=== PATIENT | female | born 1990 | race Caucasian/White ===

== ENCOUNTER 2017-12-17 15:26 | Emergency (ER) | payer OTHER ==
[2017-12-17 16:24] LABS: APPEARANCE, URINE CLEAR (CLEAR); BACTERIA, URINE AUTO NEGATIVE (NEGATIVE); BILIRUBIN, URINE AUTO NEGATIVE (NEGATIVE); BLOOD, URINE BLOOD 1+ (NEGATIVE); COLOR, URINE YELLOW (YELLOW); GLUCOSE, URINE (UA) AUTO NEGATIVE (NEGATIVE); KETONE, URINE AUTO NEGATIVE (NEGATIVE); LEUKOCYTE ESTERASE, URINE AUTO NEGATIVE (NEGATIVE); MUCUS, URINE SMALL (NEGATIVE); NITRITE, URINE AUTO NEGATIVE (NEGATIVE); PROTEIN, URINE AUTO NEGATIVE (NEGATIVE); RBC, URINE AUTO 1 /HPF (0-3); SPECIFIC GRAVITY URINE AUTO 1.014 (1.002-1.035); SQUAMOUS EPITHELIAL CELL UR AU 2 /HPF (0-6); UROBILINOGEN, URINE AUTO 0.2 mg/dL (0.0-2.0); WBC, URINE AUTO 2 /HPF (0-3)
[2017-12-17 16:31] LABS: BASO % 0.5 % (0.0-1.0); EOS # 0.1 10^3/uL (0.0-0.50); EOS % 0.8 % (0.0-3.0); HEMOGLOBIN 13.4 g/dl (12.0-15.5); IMMATURE GRANULOCYTE % 0.6 % (0-3.0); LYMPH # 1.8 10^3/uL (1.5-6.5); LYMPH % 20.8 % (24.0-44.0); MEAN CORPUSCULAR HEMOGLOBIN 28.4 pg (27.0-33.0); MEAN CORPUSCULAR HGB CONC 33.5 g/dl (32.0-36.5); MEAN CORPUSCULAR VOLUME 84.7 fl (80.0-96.0); MONO # 0.5 10^3/uL (0.0-0.8); MONO % 6.2 % (0.0-5.0); NEUTROPHILS # 6.2 10^3/uL (1.8-7.7); NEUTROPHILS % 71.1 % (36.0-66.0); PLATELET COUNT, AUTOMATED 273 10^3/uL (150-450); RED BLOOD COUNT 4.72 10^6/uL (4.00-5.40); RED CELL DISTRIBUTION WIDTH 12.6 % (11.5-14.5); WHITE BLOOD COUNT 8.7 10^3/uL (4.0-10.0)
[2017-12-17] MEDS: NS 1,000 ML IV (16:33)
[2017-12-17] MEDS: ONDANSETRON 4MG/2ML VIAL (J2405) IV (16:34)
[2017-12-17 16:59] LABS: INFLUENZA A AMPLIFICATION NEGATIVE (NEGATIVE); INFLUENZA B AMPLIFICATION NEGATIVE (NEGATIVE)
[2017-12-17 17:25] LABS: CONTROL LINE HCG INT CTR LINE PRESENT; HCG, SERUM QUALITATIVE NEGATIVE (NEGATIVE)
[2017-12-17 17:30] LABS: ALBUMIN 3.6 GM/DL (3.2-5.2); ALKALINE PHOSPHATASE 73 U/L (45-117); ALT/SGPT 39 U/L (12-78); ANION GAP 7 MEQ/L (8-16); AST/SGOT 21 U/L (7-37); BILIRUBIN,TOTAL 0.2 MG/DL (0.2-1.0); BLOOD UREA NITROGEN 14 MG/DL (7-18); CALCIUM LEVEL 8.5 MG/DL (8.5-10.1); CARBON DIOXIDE LEVEL 28 MEQ/L (21-32); CHLORIDE LEVEL 106 MEQ/L (98-107); CREATININE FOR GFR 0.86 MG/DL (0.55-1.30); GLOMERULAR FILTRATION RATE > 60.0 (>60); GLUCOSE, FASTING 170 MG/DL (70-100); LIPASE 137 U/L (73-393); POTASSIUM SERUM 3.6 MEQ/L (3.5-5.1); SODIUM LEVEL 141 MEQ/L (136-145); TOTAL PROTEIN 7.2 GM/DL (6.4-8.2)
== END 2017-12-17 18:06 | disposition home or self-care (01) ==
LOC: M ED 15:26
DX: R09.81 Nasal congestion (principal)
CPT/HCPCS: J2405

== ENCOUNTER → 2018-03-10 | Outpatient (REF) | payer OTHER ==
[~2018-03-10] MED LIST: 12 H120T2 PO; LEXA1TAB2 PO; ZOFR4TAB14 PO
== END ==
LOC: M SFHCLERA 10:20
PROVIDERS: ATTEND Nurse Practitioner Family
DX: R53.81 Other malaise (principal)

== ENCOUNTER 2018-05-04 09:14 | Day surgery (SDC) | payer OTHER ==
[~2018-05-04] VITALS: Ht 162.6 cm; Wt 120.7 kg
[~2018-05-04 09:14] MED LIST changes: +VITA50005 PO
[2018-05-04] MEDS ORDERED: NS 1,000 ML IV ONE (10:00)
[2018-05-04] MEDS ORDERED: PROPOFOL 200 MG/20 ML VIAL As Ordered ONE (10:54)
[2018-05-04] MEDS ORDERED: LIDOCAINE 2% INJ 100 MG/5 ML SDV (FOR ANES.) As Ordered ONE (10:54)
--- NOTE | 2018-05-04 10:56 | ROOR ---
Patient Name: Leanna Fuentes Procedure Date: 05/04/2018 10:40 AM Date of : 1990 Age: 28 Room: [facility] Gender: Female Note Status: Finalized Procedure: Upper Endoscopy + Biopsies Indications: Nausea with vomiting Providers: Gwyn Porter MD Referring MD: DANE VELA MD Requesting Provider: Medicines: Monitored Anesthesia Care Complications: No immediate complications. Procedure: Pre-Anesthesia Assessment: - The heart rate, respiratory rate, oxygen saturations, blood pressure, adequacy of pulmonary ventilation, and response to care were monitored throughout the procedure. The Endoscope was introduced through the mouth, and advanced to the second part of duodenum. The upper GI endoscopy was accomplished without difficulty. The patient tolerated the procedure well. Findings: The Z-line was regular and was found 40 cm from the incisors. No other significant abnormalities were identified in a careful examination of the stomach. The exam of the duodenum was otherwise normal. Biopsies were taken with a cold forceps in the gastric antrum for Helicobacter pylori testing. Multiple biopsies were obtained with cold forceps for evaluation to rule out Barrios's Esophagus at the gastroesophageal junction, as well as random biopsies. The exam was otherwise without abnormality. Impression: - Z-line regular, 40 cm from the incisors. - The examination was otherwise normal. - Biopsies were taken with a cold forceps for Helicobacter pylori testing. - Biopsy performed in the gastroesophageal junction. - The examination was otherwise normal. Recommendation: - Patient has a contact number available for emergencies. The signs and symptoms of potential delayed complications were discussed with the patient. Return to normal activities tomorrow. Written discharge instructions were provided to the patient. - High fiber diet. - Discharge patient to home. - Follow an antireflux regimen. - Continue present medications. - Await pathology results. - Telephone GI clinic for pathology results in 1 week. - Return to referring physician. - The findings and recommendations were discussed with the patient's family. Gwyn Porter MD Gwyn Porter MD 05/04/2018 10:56:09 AM This report has been signed electronically. Number of Addenda: 0 Note Initiated On: 05/04/2018 10:40 AM Estimated Blood Loss: Estimated blood loss: none.
--- NOTE | 2018-05-04 11:13 | ROOR ---
Patient Name: Leanna Fuentes Procedure Date: 05/04/2018 10:41 AM Date of : 1990 Age: 28 Room: [facility] Gender: Female Note Status: Finalized Procedure: Total Colonoscopy to Cecum + ileoscopy + Bx Indications: Lower abdominal pain, Clinically significant diarrhea of unexplained origin, Family history of Crohn's disease Providers: Gwyn Porter MD Referring MD: DANE VELA MD Requesting Provider: Medicines: Monitored Anesthesia Care Complications: No immediate complications. Procedure: Pre-Anesthesia Assessment: - The heart rate, respiratory rate, oxygen saturations, blood pressure, adequacy of pulmonary ventilation, and response to care were monitored throughout the procedure. The Colonoscope was introduced through the anus and advanced to the cecum, identified by appendiceal orifice and ileocecal valve. The colonoscopy was performed without difficulty. The patient tolerated the procedure well. The quality of the bowel preparation was excellent. Findings: The perianal and digital rectal examinations were normal. Non-bleeding internal hemorrhoids were found during retroflexion. The hemorrhoids were small and Grade I (internal hemorrhoids that do not prolapse). No other significant abnormalities were identified in a careful examination of the remainder of the colon. Biopsies for histology were taken with a cold forceps from the ascending colon, transverse colon and descending colon for evaluation of microscopic colitis. The terminal ileum appeared normal. The exam was otherwise without abnormality on direct and retroflexion views. Impression: - Non-bleeding internal hemorrhoids. - The examined portion of the ileum was normal. - The examination was otherwise normal on direct and retroflexion views. - Biopsies were taken with a cold forceps from the ascending colon, transverse colon and descending colon for evaluation of microscopic colitis. - The exam was otherwise normal to the cecum. Recommendation: - Patient has a contact number available for emergencies. The signs and symptoms of potential delayed complications were discussed with the patient. Return to normal activities tomorrow. Written discharge instructions were provided to the patient. - High fiber diet. - Discharge patient to home. - Continue present medications. - Await pathology results. - Telephone GI clinic for pathology results in 1 week. - Return to referring physician. - The findings and recommendations were discussed with the patient's family. Gwyn Porter MD Gwyn Porter MD 05/04/2018 11:12:57 AM This report has been signed electronically. Number of Addenda: 0 Note Initiated On: 05/04/2018 10:41 AM Estimated Blood Loss: Estimated blood loss: none.
[2018-05-04 11:48] VITALS: BP 133/88
== END 2018-05-04 12:00 | disposition home or self-care (01) ==
LOC: M OPP 09:14
PROVIDERS: ATTEND Internal Medicine Gastroenterology
DX: K64.0 First degree hemorrhoids (principal); R10.30 Lower abdominal pain, unspecified; Z83.79 Family history of other diseases of the digestive system; R19.7 Diarrhea, unspecified; R11.2 Nausea with vomiting, unspecified; K29.50 Unspecified chronic gastritis without bleeding; Z79.899 Other long term (current) drug therapy; Z88.5 Allergy status to narcotic agent

== ENCOUNTER → 2018-09-29 | Outpatient (REF) | payer OTHER ==
[2018-09-30 11:12] LABS: AMORPHOUS SEDIMENT SMALL (NEGATIVE); APPEARANCE, URINE TURBID (CLEAR); BACTERIA, URINE AUTO NEGATIVE (NEGATIVE); BILIRUBIN, URINE AUTO NEGATIVE (NEGATIVE); BLOOD, URINE BLOOD 1+ (NEGATIVE); COLOR, URINE YELLOW (YELLOW); GLUCOSE, URINE (UA) AUTO NEGATIVE (NEGATIVE); KETONE, URINE AUTO NEGATIVE (NEGATIVE); LEUKOCYTE ESTERASE, URINE AUTO NEGATIVE (NEGATIVE); NITRITE, URINE AUTO NEGATIVE (NEGATIVE); PROTEIN, URINE AUTO NEGATIVE (NEGATIVE); RBC, URINE AUTO 0 /HPF (0-3); SPECIFIC GRAVITY URINE AUTO 1.023 (1.002-1.035); SQUAMOUS EPITHELIAL CELL UR AU 0 /HPF (0-6); UROBILINOGEN, URINE AUTO 0.2 mg/dL (0.0-2.0); WBC, URINE AUTO 0 /HPF (0-3)
== END ==
LOC: M SFHCLERA 21:13
PROVIDERS: ATTEND Physician Assistant
DX: R31.9 Hematuria, unspecified (principal)
CPT/HCPCS: 81001; 81002; 81025; 82948; 87086; G0463

== ENCOUNTER → 2019-02-16 | Outpatient (CLI) | payer OTHER ==
--- NOTE | 2019-02-17 10:24 | ECGEPIP ---
[facility] Test Date: 2019-02-16 Pat Name: SUMAN MEDRANO Department: Room: - Gender: Female [employer]: [place] : 1990 Requested By: Parvin Duff Order Number: [id number] Reading MD: Lamont Lucero Measurements Intervals [place] Rate: 97 P: 30 MN: 165 QRS: -9 QRSD: 78 T: 0 QT: 339 QTc: 431 Interpretive Statements SINUS RHYTHM Comparison tracing not on file Electronically Signed on 02-17-2019 10:24:08 EST by Lamont Lucero
== END ==
LOC: M EKG 14:55
PROVIDERS: ATTEND Nurse Practitioner Women's Health
DX: O24.011 Pre-existing type 1 diabetes mellitus, in pregnancy, first trimester (principal); Z3A.10 10 weeks gestation of pregnancy

== ENCOUNTER → 2019-05-16 | Outpatient (REF) | payer OTHER | LOC: M SFHCLERA 17:53 | PROVIDERS: ATTEND Physician Assistant Medical | DX: K12.1 Other forms of stomatitis (principal) | CPT/HCPCS: 87070; G0463 ==

== ENCOUNTER 2019-08-17 13:41 | Inpatient (IN) | payer OTHER ==
[~2019-08-17] VITALS: Ht 162.6 cm; Wt 120.8 kg
[2019-08-17] VITALS (7 sets, daily range): BP systolic 115–132; BP diastolic 66–80
[~2019-08-17 13:41] MED LIST changes: -DOCU100C16 PO; -IBUP80TA PO; -INSULIN REGULAR SC; -PERCOCET PO; -REG INSULIN SC; -baby aspirin PO; -nph insulin SQ
[2019-08-17] MEDS ORDERED: nph insulin SQ (14:17)
[2019-08-17] MEDS ORDERED: baby aspirin PO (14:17)
[2019-08-17] MEDS ORDERED: INSULIN REGULAR SC (14:17)
[2019-08-17] MEDS ORDERED: REG INSULIN SC (14:17)
[2019-08-17] MEDS ORDERED: INSULIN REGULAR IN 0.9 % NACL 100 UNIT in IV 1 EA IV SCH ×2 (14:32)
[2019-08-17] MEDS ORDERED: NS 1,000 ML IV SCH (14:32)
[2019-08-17] MEDS ORDERED: INSULIN IV RATE CHANGE DOCUMENTATION ML/HR XX SCH (14:45)
[2019-08-17] MEDS ORDERED: miSOPROStol 25 MCG 1/4 TAB (S0191) PO ONE (15:00)
[2019-08-17 15:47] LABS: BASO % 0.3 % (0.0-1.0); EOS % 0.2 % (0.0-3.0); HEMATOCRIT 35.2 % (36.0-47.0); HEMOGLOBIN 11.8 g/dl (12.0-15.5); LYMPH # 1.3 10^3/uL (1.5-5.0); LYMPH % 15.1 % (24.0-44.0); MEAN CORPUSCULAR HGB CONC 33.5 g/dl (32.0-36.5); MEAN CORPUSCULAR VOLUME 80.5 fl (80.0-96.0); MONO # 0.5 10^3/uL (0.0-0.8); MONO % 5.4 % (0.0-5.0); NEUTROPHILS # 6.9 10^3/uL (1.5-8.5); NEUTROPHILS % 78.7 % (36.0-66.0); PLATELET COUNT, AUTOMATED 188 10^3/uL (150-450); RED BLOOD COUNT 4.37 10^6/uL (4.00-5.40); WHITE BLOOD COUNT 8.8 10^3/uL (4.0-10.0)
[2019-08-17] MEDS ORDERED: FLUCONAZOLE 50MG TABLET PO ONE (16:00)
[2019-08-17 17:02] LABS: ALBUMIN 2.5 GM/DL (3.2-5.2); ALT/SGPT 17 U/L (12-78); BILIRUBIN,TOTAL 0.4 MG/DL (0.2-1.0); BLOOD UREA NITROGEN 10 MG/DL (7-18); CALCIUM LEVEL 8.7 MG/DL (8.5-10.1); CARBON DIOXIDE LEVEL 25 MEQ/L (21-32); CHLORIDE LEVEL 107 MEQ/L (98-107); CREATININE FOR GFR 0.72 MG/DL (0.55-1.30); GLOMERULAR FILTRATION RATE > 60.0 (>60); GLUCOSE, FASTING 112 MG/DL (70-100); POTASSIUM SERUM 4.2 MEQ/L (3.5-5.1); SODIUM LEVEL 138 MEQ/L (136-145); TOTAL PROTEIN 5.7 GM/DL (6.4-8.2)
[2019-08-17 17:32] LABS: HEMOGLOBIN A1c 5.6 %
[2019-08-17] MEDS ORDERED: miSOPROStol 25 MCG 1/4 TAB (S0191) SL SCH (18:00)
[2019-08-17] MEDS ORDERED: miSOPROStol 25 MCG 1/4 TAB (S0191) SL ONE (20:30)
[2019-08-18] VITALS (11 sets, daily range): BP systolic 117–137; BP diastolic 67–86
[2019-08-18] MEDS ORDERED: MORPHINE 10 MG/ML 1ML VIAL (J2270) IM ONE (02:45)
[2019-08-18] MEDS ORDERED: PROMETHAZINE INJ 25 MG/ML VIAL (J2550) IV ONE (02:45)
[2019-08-18] MEDS ORDERED: MORPHINE 10 MG/ML 1ML VIAL (J2270) IV ONE (02:45)
[2019-08-18] MEDS ORDERED: LACTATED RINGER'S 1000 ML IV STA (06:28)
--- NOTE | 2019-08-18 06:28 | IPNPDOC ---
Text Note Date of Service The patient was seen on 08/18/19. NOTE patient is a 29 yo G1 @ 37wks admitted yesterday for IOL secondary to BPP 06/20. NST non reactive on admission, no accelerations. patient's course complicated by DM on insulin. Patients induction started with cytotec 25mcg x 3. She received morphine and phenergan around 0300 for pain management. through out her labor course, fht shows min-mod variability with episodic decels. On occasions when contraction is coupled with decel, they appear to be late or variable decels. These usually resolved with extrauterine resuscitations (oxygen, fluids, positioning). Last cervix checked at around 0300 to be 1 cm currently fht: 165/min-mod judy/occasional late decels. toco: ctx q 3mins discussed with patient that fth shows fetus may not able to tolerate active labor. Option of primary section vs. continuing with induction knowing that we may have to have a section for concerns in active labor. Discussed with patient risks of section to include pain post op and recovery, injury to surrounding organs, bleeding needing blood transfusion, possible hysterectomy, infection (patient's specific infection risk is higher due to obesity and DM), postoperative pain and effects of future delivery planing. After patient discussed with her spouse and family, patient desires to move forward with primary section. Patient consented for section and blood products. consent forms signed. plan for ancef and azithromycin for antibiotics back to OR once team ready. DO Rona VS,Lawrencebone, I+O VS, Fishbone, I+O Laboratory Tests 08/17/19 15:31 Vital Signs Date Time Temp Pulse Resp B/P (MAP) Pulse Ox O2 Delivery O2 Flow Rate FiO2 08/18/19 03:10 18 08/18/19 03:09 Room Air 08/18/19 01:07 98.4 86 123/68 (86) I&O- Last 24 Hours up to 6 AM 08/18/19 06:00 Output Total 500 ml Balance -500 ml SEAN JENNINGS DO Aug 18, 2019 05:56
[2019-08-18] MEDS ORDERED: AZITHROMYCIN INJ 500 MG, VIAL MATE ADAPTER 1 EACH in D5W 250 ML IV ONE (06:30)
[2019-08-18] MEDS ORDERED: BICITRA 30ML SOLN UDC PO ONE (06:30)
[2019-08-18] MEDS ORDERED: ceFAZolin SOD 3 GM in IV 1 EA IV ONE (06:30)
[2019-08-18] MEDS ORDERED: ceFAZolin SOD 1 GM in D5W MINI-BAG PLUS 50 ML IV ONE (06:45)
[2019-08-18] MEDS ORDERED: ceFAZolin SOD 2 GM in IV 1 EA IV ONE (06:45)
[2019-08-18] MEDS ORDERED: METOCLOPRAMIDE INJ 10MG/2ML VIAL (J2765 PER 1) IV PRN (07:57)
[2019-08-18] MEDS ORDERED: diphenhydrAMINE 50MG/ML VIAL (J1200) IV PRN (07:57)
[2019-08-18] MEDS ORDERED: NALOXONE INJ 0.4MG/1ML VIAL (J2310 PER 1MG) IV PRN ×2 (07:57)
[2019-08-18] MEDS ORDERED: NALBUPHINE HCL 10 MG/ML AMP (J2300) IV PRN (07:57)
[2019-08-18] MEDS ORDERED: ONDANSETRON 4MG/2ML VIAL IV PRN ×2 (07:57→09:45)
[2019-08-18] MEDS ORDERED: PHENYLephrine HCL 500 MCG/5 ML (100MCG/ML) SYRINGE (J2370) As Ordered ONE (08:11)
[2019-08-18] MEDS ORDERED: dexameTHASONE 4 MG/ML 1ML VIAL (J1100 PER 1MG) As Ordered ONE (08:11)
[2019-08-18] MEDS ORDERED: OXYTOCIN 30 UNITS IN 0.9% NaCl 500ML IV BAG (J2590) As Ordered ONE ×2 (08:11→09:15)
[2019-08-18] MEDS ORDERED: ONDANSETRON 4MG/2ML VIAL As Ordered ONE (08:11)
[2019-08-18] MEDS ORDERED: MORPHINE PRES-FREE INJ 10 MG/10 ML VIAL (J2274) As Ordered ONE (08:11)
[2019-08-18] MEDS ORDERED: KETOROLAC 60 MG/2 ML VIAL As Ordered ONE (08:11)
[2019-08-18] MEDS ORDERED: MIDAZOLAM INJ 2MG/2ML VIAL (J2250 PER 1MG) As Ordered ONE (08:40)
[2019-08-18 08:54] LABS: CORD GAS ABE V -7.1; CORD GAS HCO3 V 23.1 MEQ/L; CORD GAS O2 SAT V 23.4 %; CORD GAS PCO2 V 68.4 mmHg; CORD GAS PH V 7.146 UNITS; CORD GAS PO2 V 16.5 mmHg; CORD GAS SBC V 17.2 MEQ/L; CORD GAS TCO2 V 25.2 MEQ/L
[2019-08-18 08:57] LABS: CORD GAS ABE A -8.5; CORD GAS HCO3 A 22.3 MEQ/L; CORD GAS O2 SAT A 34.9 %; CORD GAS PCO2 A 72.6 mmHg; CORD GAS PH A 7.106 UNITS; CORD GAS PO2 A 23.8 mmHg; CORD GAS SBC A 16.4 MEQ/L; CORD GAS TCO2 A 24.6 MEQ/L
[2019-08-18] MEDS ORDERED: ESCITALOPRAM OXALATE 10 MG TAB (LEXAPRO) PO SCH (09:00)
[2019-08-18] MEDS ORDERED: MEASLES,MUMPS,RUBELLA VACCINE INJ (MMR-II) (90707) SC SCH (09:15)
[2019-08-18] MEDS ORDERED: RHOGAM 300 MCG (1500 IU) INJ (J2790) IM SCH ×2 (09:15→11:45)
[2019-08-18] MEDS ORDERED: PERCOCET 5MG/325MG TAB PO PRN (09:15)
[2019-08-18] MEDS ORDERED: ACETAMINOPHEN 650 MG SUPP PR PRN (09:15)
[2019-08-18] MEDS ORDERED: fentaNYL 100 MCG/2 ML INJECTION (J3010) IV PRN (09:45)
[2019-08-18] MEDS ORDERED: oxyCODONE 5MG TAB PO PRN (09:45)
--- NOTE | 2019-08-18 10:41 | POST-OPPD ---
Postoperative Procedure Note Date Of Procedure: Aug 18, 2019 PREOPERATIVE DIAGNOSIS: Gravid @ 37 wks gestation intolerant to labor DM on insulin obesity POSTOPERATIVE DIAGNOSIS: Post operative (primary low transverse section) DM obesity FINDINGS: viable male infant, 2980 gm, 1/3/6/8. PROCEDURE: Primary low transverse section SURGEON: Myra Rea DO IT PROGRAM AUDITOR: Leslie Sweeney MD ANESTHESIA: Spinal SPECIMENS: none ESTIMATED BLOOD LOSS: 600 REPLACED: 1000cc LR DRAINS: 100cc urine COMPLICATIONS: none POSTOPERATIVE CONDITION: stable Detail description of procedure: Description of procedure: The risks, benefits, indications and alternatives to the procedure were reviewed with the patient and informed consent was obtained. Spinal anesthesia was dosed for surgical analgesic. She was prepped and draped in the normal sterile fashion in the dorsal supine position with a leftward tilt. The abdomen was entered through a pfannenstiel incision. Sharp dissection taken down to fascia layer. Fascia layer entered sharply and carried lateral and upward bilaterally. Space between fascia and rectus muscle created bluntly. Midline rectus muscle entered bluntly. Peritoneum entered sharply between rectus muscles. The rectus muscles and peritoneum bluntly along midline and exposes the gravid uterus. The Mobius retractor placed intraabdominal. The vesicouterine peritoneum was identified. Beckham uterine incision made. The uterine incision was extended superolaterally. Head delivered through the hysterotomy. The anterior and posterior shoulders delivered followed by body with ease. The cord was clamped and cut. The infant was handed off to warmer. Pitocin bolus started. Cord gas collected. The placenta delivered spontaneously. The uterus was cleared of all clots and debris. The uterine incision was repaired with 2 layers with 0 chromic in a running locking fashion and 0 monocryl imbricating layer. Hysterotomy inspected to be hemostatic. Mobius retractor removed. The peritoneum, fascia and muscle bellies were inspected and noted to be hemostatic. The peritoneum brought back together midline with 3-0 vicryl. The fascia approximated with 0 vicryl suture in a running fashion. The subcutaneous tissue closed with 3-0 vicryl interrupted. The skin was closed with subcuticular 4-0 Monocryl. Dressing applied. The vagina was cleared of clots. Sponge laps, needle and instruments count correct x 2. Patient taken to recovery room in stable condition. DO MICHAELA Rea LUAT N. DO Aug 18, 2019 09:36
--- NOTE | 2019-08-18 10:41 | DNPDOC ---
[facility] Delivery Note Delivery Note DATE OF DELIVERY: 08/18/2019 PREDELIVERY DIAGNOSIS: 37+0/7 weeks' gestation intolerant to labor Class B DM on insulin Obesity POST DELIVERY DIAGNOSIS: Delivered. class B DM obesity PROCEDURE: primary low transverse section AMPOULE INSPECTOR: Dr. Sean Rea DO ANESTHESIA: SPINAL ESTIMATED BLOOD LOSS: 600 mL. FINDINGS: viable male infant, 2980 gm, 1/3/6/8 DELIVERY SUMMARY: Uncomplicated primary cesaeran delivery, baby went to NICU for respiratory concerns. see dictation note for details. SEAN REA DO Aug 18, 2019 09:32
[2019-08-18] MEDS ORDERED: LR 1,000 ML IV SCH (12:00)
[2019-08-18] MEDS: FLUCONAZOLE 50MG TABLET PO SCH ×2 (15:20→16:40)
[2019-08-18] MEDS: KETOROLAC 30 MG/ML 1ML VIAL IV SCH ×2 (15:20→20:58)
[2019-08-18] MEDS: DOCUSATE SODIUM 100 MG CAP PO SCH (20:58)
[2019-08-18] MEDS: ESCITALOPRAM OXALATE 10 MG TAB (LEXAPRO) PO SCH (21:40)
[2019-08-19 02:00] VITALS: BP 128/68
[2019-08-19] MEDS: KETOROLAC 30 MG/ML 1ML VIAL IV SCH (03:54)
[2019-08-19 06:00] VITALS: BP 118/56
[2019-08-19 07:01] LABS: HEMATOCRIT 29.6 % (36.0-47.0); MEAN CORPUSCULAR HEMOGLOBIN 27.7 pg (27.0-33.0); MEAN CORPUSCULAR HGB CONC 33.8 g/dl (32.0-36.5); PLATELET COUNT, AUTOMATED 144 10^3/uL (150-450); RED BLOOD COUNT 3.61 10^6/uL (4.00-5.40); WHITE BLOOD COUNT 14.6 10^3/uL (4.0-10.0)
--- NOTE | 2019-08-19 08:19 | IPNPDOC ---
Progress Note Date of Service: Aug 19, 2019 Day#: 1 Progress Note SUBJECT: Patient is a 29-year-old 1 now Para 1 status post uncomplicated delivery, doing well postoperative day # 1. She has been ambulating, voiding could not happen and therefore catheter replaced last night. Tolerating regular diet. Breast feeding without issue. Reports lochia is like a normal period. Patient is ambulating well. Reports some cramping with . Tolerable pain. OBJECTIVE: VITAL SIGNS: Within normal limits, afebrile. GENERAL: No acute distress HEENT: MMM BREAST: Nontender, no erythema CARDIOVASCULAR EXAMINATION: RRR RESPIRATORY EXAMINATION: Bilaterally clear ABDOMINAL EXAMINATION: Soft, appropriate tenderness, nondistended, fundus -2 PERINEUM: Intact, minimal lochia EXTREMITIES: no edema, nontender WOUND: Dressing clean and intact ASSESSMENT: Patient is a 29-year-old 1 now Para 1 status post uncomplicated delivery, doing well postoperative day # 1. Vitals within normal limits, afebrile, hemodynamically stable with no evidence of infection. PLAN: 1. Routine advances including voiding trial at noon. 2. Tylenol and Motrin for pain. 3. Encourage breast feeding and ambulation. VS, I&O, 24H, Fishbone Vital Signs/I&O Vital Signs Date Time Temp Pulse Resp B/P (MAP) Pulse Ox O2 Delivery O2 Flow Rate FiO2 08/18/19 14:00 96.2 94 18 135/82 (99) 96 Room Air I&O- Last 24 Hours up to 6 AM 08/18/19 05:59 Output Total 500 ml Balance -500 ml Laboratory Data 24H LABS Laboratory Tests 2 08/17/19 18:12: Bedside Glucose (Misc Panel) 88 08/17/19 21:21: Bedside Glucose (Misc Panel) 89 08/18/19 00:01: Bedside Glucose (Misc Panel) 73 08/18/19 02:18: Bedside Glucose (Misc Panel) 79 08/18/19 05:07: Bedside Glucose (Misc Panel) 82 08/18/19 08:50: Cord Arterial Blood pH 7.106, Cord Arterial Blood PCO2 72.6, Cord Arterial Blood PO2 23.8, Cord Arterial Blood HCO3 22.3, Cord Arterial Blood Total CO2 24.6, Cord Arterial Blood Base Excess -8.5, Cord Arterial Base Excess (Standard 16.4, Cord Arterial Bld Oxygen Saturation 34.9, Cord Venous Blood pH 7.146, Cord Venous Blood PCO2 68.4, Cord Venous Blood PO2 16.5, Cord Venous Blood HCO3 23.1, Cord Venous Blood Total CO2 25.2, Cord Venous Base Excess (Actual) -7.1, Cord Venous Base Excess (Standard) 17.2, Cord Venous Blood Oxygen Saturation 23.4 Caren Sweeney MD Aug 18, 2019 17:16
[2019-08-19] MEDS: PRENATAL VITAMINS CHEWABLE TABLET PO SCH (09:09)
[2019-08-19] MEDS: DOCUSATE SODIUM 100 MG CAP PO SCH ×2 (09:09→20:10)
[2019-08-19 10:00] VITALS: BP 120/67
[2019-08-19] MEDS: IBUPROFEN 800 MG TAB PO SCH ×2 (10:56→18:27)
[2019-08-19] MEDS: PERCOCET 5MG/325MG TAB PO PRN (13:15)
[2019-08-19] MEDS: FLUCONAZOLE 50MG TABLET PO SCH (16:48)
[2019-08-19 18:00] VITALS: BP 121/69
[2019-08-19] MEDS: ESCITALOPRAM OXALATE 10 MG TAB (LEXAPRO) PO SCH (20:10)
[2019-08-19 22:00] VITALS: BP 133/72
[2019-08-20] MEDS: IBUPROFEN 800 MG TAB PO SCH ×2 (04:01→10:45)
[2019-08-20] MEDS: PERCOCET 5MG/325MG TAB PO PRN ×2 (05:26→13:09)
[2019-08-20 05:45] VITALS: BP 136/71
[2019-08-20] MEDS ORDERED: DOCU100C16 PO (07:22)
[2019-08-20] MEDS ORDERED: PERCOCET PO (07:22)
[2019-08-20] MEDS ORDERED: IBUP80TA PO (07:22)
[2019-08-20] MEDS: PRENATAL VITAMINS CHEWABLE TABLET PO SCH (08:51)
[2019-08-20] MEDS: DOCUSATE SODIUM 100 MG CAP PO SCH (08:51)
== END 2019-08-20 13:15 | disposition home or self-care (01) | DRG 771 ==
LOC: M LDI 13:41 → M OBS 08-18 10:09
PROVIDERS: ADMIT Obstetrics & Gynecology; ATTEND Obstetrics & Gynecology
PROC: 3E0P7GC Introduction of Other Therapeutic Substance into Female Reproductive, Via Natural or Artificial Opening (ICD-10-PCS; 2019-08-17)
PROC: 10D00Z1 Extraction of Products of Conception, Low, Open Approach (ICD-10-PCS; principal; 2019-08-18 07:30)
DX: O76 Abnormality in fetal heart rate and rhythm complicating labor and delivery (principal); O24.12 Pre-existing type 2 diabetes mellitus, in childbirth; O99.354 Diseases of the nervous system complicating childbirth; Z3A.36 36 weeks gestation of pregnancy; O99.214 Obesity complicating childbirth; E66.9 Obesity, unspecified; O99.344 Other mental disorders complicating childbirth; F41.9 Anxiety disorder, unspecified; G47.30 Sleep apnea, unspecified; Z37.0 Single live birth; Z79.4 Long term (current) use of insulin; Z79.899 Other long term (current) drug therapy; Z88.5 Allergy status to narcotic agent

== ENCOUNTER → 2019-08-17 | Outpatient (CLI) | payer OTHER ==
[~2019-08-17] MED LIST changes: +DOCU100C16 PO; +IBUP80TA PO; +INSULIN REGULAR SC; +PERCOCET PO; +REG INSULIN SC; +baby aspirin PO; +nph insulin SQ
--- NOTE | 2019-08-17 13:37 | REP ---
OB ULTRASOUND AND BIOPHYSICAL PROFILE: Real-time sonographic evaluation of the gravid uterus performed. There is single living intrauterine gestation. The estimated gestational age is reportedly 36 weeks 6 days with EDC 09/08/2019. heart rate is 162 beats per minute. Amniotic fluid is within normal limits. SOHAM is 11.6 with a normal of 7.5 to 24.5. Biophysical profile score is 4/8 with no points for movement or tone. S/D ratio in the umbilical artery is 2.68 normal range 1.64 to 2.64. RI 0.63 within normal range of 0.59 to 0.75. position is vertex. The placenta is posterior and fundal, grade 1 with no previa or abruption. Electronically Signed by Nile Jennings MD 08/17/2019 07:46 P
== END ==
LOC: M RAD 10:45
PROVIDERS: ATTEND Obstetrics & Gynecology
DX: Z36.89 Encounter for other specified antenatal screening (principal); Z3A.36 36 weeks gestation of pregnancy

== ENCOUNTER → 2020-03-05 | Outpatient (CLI) | payer OTHER ==
[~2020-03-05] MED LIST changes: +DOCU100C16 PO; +IBUP80TA PO; +INSULIN REGULAR SC; +PERCOCET PO; +REG INSULIN SC; +baby aspirin PO; +nph insulin SQ
== END ==
LOC: M LABSMTC 15:01
PROVIDERS: ATTEND Family Medicine
DX: Z20.828 Contact with and (suspected) exposure to other viral communicable diseases (principal)

== ENCOUNTER → 2020-04-24 | Outpatient (REF) | payer OTHER ==
[2020-04-24 18:53] LABS: BASO # 0.1 10^3/uL (0.0-0.2); BASO % 0.6 % (0.0-1.0); EOS % 0.3 % (0.0-3.0); HEMATOCRIT 43.6 % (36.0-47.0); HEMOGLOBIN 14.1 g/dl (12.0-15.5); LYMPH # 1.7 10^3/uL (1.5-5.0); LYMPH % 16.5 % (24.0-44.0); MEAN CORPUSCULAR HEMOGLOBIN 26.6 pg (27.0-33.0); MEAN CORPUSCULAR HGB CONC 32.3 g/dl (32.0-36.5); MEAN CORPUSCULAR VOLUME 82.1 fl (80.0-96.0); MONO # 0.6 10^3/uL (0.0-0.8); MONO % 5.3 % (0.0-5.0); NEUTROPHILS # 7.9 10^3/uL (1.5-8.5); NEUTROPHILS % 76.7 % (36.0-66.0); PLATELET COUNT, AUTOMATED 337 10^3/uL (150-450); RED BLOOD COUNT 5.31 10^6/uL (4.00-5.40); WHITE BLOOD COUNT 10.3 10^3/uL (4.0-10.0)
[2020-04-24 19:08] LABS: HEMOGLOBIN A1c 5.8 %
[2020-04-24 19:18] LABS: ALBUMIN 4.1 GM/DL (3.2-5.2); ALT/SGPT 25 U/L (12-78); BILIRUBIN,TOTAL 0.3 MG/DL (0.2-1.0); BLOOD UREA NITROGEN 11 MG/DL (7-18); CALCIUM LEVEL 8.8 MG/DL (8.5-10.1); CARBON DIOXIDE LEVEL 26 MEQ/L (21-32); CHLORIDE LEVEL 106 MEQ/L (98-107); CHOLESTEROL LEVEL 252 MG/DL (<200); CHOLESTEROL RISK RATIO 5.727 (<5); CREATININE FOR GFR 0.82 MG/DL (0.55-1.30); GLOMERULAR FILTRATION RATE > 60.0 (>60); GLUCOSE, FASTING 121 MG/DL (70-100); HDL CHOLESTEROL 44 MG/DL (>40); LDL CHOLESTEROL 165 MG/DL (<100); NON-HDL-C 208 MG/DL; POTASSIUM SERUM 4.2 MEQ/L (3.5-5.1); SODIUM LEVEL 141 MEQ/L (136-145); THYROID STIMULATING HORMONE 0.737 uIU/ML (0.358-3.740); TOTAL PROTEIN 7.8 GM/DL (6.4-8.2); TRIGLYCERIDES LEVEL 213 MG/DL (<150)
[2020-04-24 19:25] LABS: TOTAL 25(OH) VITAMIN D 15.3 NG/ML (30.0-100.0)
== END ==
LOC: M LAB REF 16:39
PROVIDERS: ATTEND Nurse Practitioner Family
DX: F41.9 Anxiety disorder, unspecified (principal); E66.9 Obesity, unspecified; R73.03 Prediabetes

== ENCOUNTER → 2020-09-22 | Outpatient (CLI) | payer OTHER ==
--- NOTE | 2020-09-22 12:15 | REPVR ---
PROCEDURE INFORMATION: Exam: MR Lumbar Spine Without Contrast Exam date and time: 09/22/2020 11:14 AM Age: 30 years old Clinical indication: Low back pain; Patient HX: Disc like symptoms in c and L spine TECHNIQUE: Imaging protocol: Multiplanar magnetic resonance images of the lumbar spine without intravenous contrast. COMPARISON: None provided. FINDINGS: Vertebrae: Question transitional lumbosacral vertebral body, labeled L5 for the purposes of this report. Vertebral body heights are intact. Alignment is maintained. No pars defect is identified. Spinal cord: The conus is unremarkable in appearance, with its tip at the T12-L1 level. Multilevel findings: There are varying degrees of disc desiccation indicating intervertebral disc degeneration. L1-L2: No significant disc displacement. L2-L3: No significant disc displacement. L3-L4: Minimal bulge without significant neural foraminal narrowing or spinal stenosis. L4-L5: Diffuse bulge with a central annular tear combining with facet arthrosis to lead to mild right and mild to moderate left neural foraminal narrowing with very mild bilateral lateral recess narrowing, without significant central canal stenosis. L5-S1: No significant disc displacement. Soft tissues: Unremarkable. IMPRESSION: Multilevel disc desiccation indicating intervertebral disk degeneration with disc displacements as described. COMMENTS: Note a questionable transitional lumbosacral vertebral body as above, for which level confirmation is recommended prior to any intervention. Radiographic correlation would be of benefit. Electronically signed by: Eliel Martinez On 09/22/2020 12:14:35 PM
--- NOTE | 2020-09-22 12:18 | REPVR ---
PROCEDURE INFORMATION: Exam: MR Cervical Spine Without Contrast Exam date and time: 09/22/2020 11:14 AM Age: 30 years old Clinical indication: Neck pain; Patient HX: Disc like symptoms in c and L spine TECHNIQUE: Imaging protocol: Multiplanar magnetic resonance images of the cervical spine without contrast. COMPARISON: No relevant prior studies available. FINDINGS: Vertebrae: Vertebral body heights are intact. Straightening of the cervical lordotic curve could be secondary to muscle spasm or positioning. Alignment is otherwise maintained. Spinal cord: The cervicomedullary junction appears unremarkable. The spinal cord appears normal in signal. Multilevel findings: There are mild degrees of disc desiccation indicating intervertebral disc degeneration. C2-C3: No significant disc displacement. C3-C4: No significant disc displacement. C4-C5: Minimal bulge without significant neural foraminal narrowing or spinal stenosis. C5-C6: Small bulge leading to very mild bilateral neural foraminal narrowing without significant spinal stenosis. C6-C7: Minimal bulge without significant neural foraminal narrowing or spinal stenosis. C7-T1: No significant disc displacement. Soft tissues: Unremarkable. Vertebral arteries: Expected flow voids in the vertebral arteries. IMPRESSION: Mild multilevel disc desiccation indicating intervertebral disk degeneration with small disc displacements as described. COMMENTS: If surgery is considered, recommend level confirmation. Electronically signed by: Eliel Martinez On 09/22/2020 12:18:05 PM
== END ==
LOC: M RAD 09:15
PROVIDERS: ATTEND Chiropractor
DX: M54.13 Radiculopathy, cervicothoracic region (principal); M54.41 Lumbago with sciatica, right side; M99.03 Segmental and somatic dysfunction of lumbar region; M51.34 Other intervertebral disc degeneration, thoracic region; M99.02 Segmental and somatic dysfunction of thoracic region

== ENCOUNTER → 2020-10-23 | Outpatient (REF) | payer OTHER, MEDICAID ==
[2020-10-23 13:40] LABS: BASO % 0.5 % (0.0-1.0); EOS # 0.1 10^3/uL (0.0-0.5); EOS % 0.7 % (0.0-3.0); HEMOGLOBIN 14.1 g/dl (12.0-15.5); LYMPH # 2.3 10^3/uL (1.5-5.0); LYMPH % 28.2 % (24.0-44.0); MEAN CORPUSCULAR HEMOGLOBIN 27.4 pg (27.0-33.0); MEAN CORPUSCULAR VOLUME 85.6 fl (80.0-96.0); MONO # 0.5 10^3/uL (0.0-0.8); MONO % 6.4 % (2.0-8.0); NEUTROPHILS # 5.1 10^3/uL (1.5-8.5); NEUTROPHILS % 63.7 % (36.0-66.0); PLATELET COUNT, AUTOMATED 256 10^3/uL (150-450); RED BLOOD COUNT 5.14 10^6/uL (4.00-5.40); WHITE BLOOD COUNT 8.1 10^3/uL (4.0-10.0)
[2020-10-23 14:31] LABS: ALBUMIN 3.6 GM/DL (3.2-5.2); ALT/SGPT 25 U/L (12-78); BILIRUBIN,TOTAL 0.3 MG/DL (0.2-1.0); BLOOD UREA NITROGEN 16 MG/DL (7-18); CALCIUM LEVEL 8.7 MG/DL (8.5-10.1); CARBON DIOXIDE LEVEL 27 MEQ/L (21-32); CHLORIDE LEVEL 107 MEQ/L (98-107); CHOLESTEROL LEVEL 254 MG/DL (<200); CHOLESTEROL RISK RATIO 5.906 (<5); CREATININE FOR GFR 0.72 MG/DL (0.55-1.30); GLOMERULAR FILTRATION RATE > 60.0 (>60); GLUCOSE, FASTING 120 MG/DL (70-100); HDL CHOLESTEROL 43 MG/DL (>40); LDL CHOLESTEROL 164 MG/DL (<100); NON-HDL-C 211 MG/DL; POTASSIUM SERUM 4.3 MEQ/L (3.5-5.1); SODIUM LEVEL 140 MEQ/L (136-145); TOTAL PROTEIN 6.8 GM/DL (6.4-8.2); TRIGLYCERIDES LEVEL 233 MG/DL (<150)
[2020-10-23 14:35] LABS: TOTAL 25(OH) VITAMIN D 29.8 NG/ML (30.0-100.0)
[2020-10-23 14:53] LABS: HEMOGLOBIN A1c 6.5 %
== END ==
LOC: M LAB REF 13:09
PROVIDERS: ATTEND Nurse Practitioner Family
DX: E78.5 Hyperlipidemia, unspecified (principal); R73.03 Prediabetes; E66.9 Obesity, unspecified